=== PATIENT | male | born 1965 ===

== ENCOUNTER 2024-11-29 07:45 | Inpatient (IN) | payer OTHER ==
[~2024-11-29] VITALS: Ht 185.4 cm; Wt 114.8 kg
[2024-11-29] MEDS ORDERED: LANTUS SOL100 UNIT/1 (09:28)
[2024-11-29] MEDS ORDERED: OZEMPIC1 MG/0.71 SQ (09:28)
[2024-11-29] MEDS ORDERED: HUMALOG100 UNIT/2 (09:29)
[2024-11-29] MEDS ORDERED: TAMS0.4C PO (09:29)
[2024-11-29 09:32] VITALS: BP 112/73
[2024-11-29 09:49] LABS: URINE APPEARANCE Clear; URINE BILIRRUBIN Negative (NEGATIVE); URINE BLOOD Negative; URINE COLOR Yellow; URINE KETONE Negative (NEGATIVE); URINE LEUKOCYTE Negative; URINE NITRATE Negative; URINE PROTEIN Negative (NEGATIVE); URINE UROBILINOGEN 0.2 E.U./dl
[2024-11-29 09:56] LABS: URINE BACTERIA 128.2 uL (0.0-1933); URINE EPITHELIAL CELLS 1.6 uL (0.0-38.8); URINE RBC 2.0 uL (0.0-20.8); URINE WBC 1.8 uL (0.0-23.2)
[2024-11-29 09:59] LABS: BASO % 0.5 % (0.1-1.2); EOS # 0.12 (0.04-0.54); EOS % 2.0 % (0.7-7.0); LYMPH # 1.62 (1.18-3.74); LYMPH % 26.6 % (19.3-53.1); MEAN PLATELET VOLUME 9.30 fl (9.4-12.4); MONO # 0.40 (0.24-0.82); MONO % 6.6 % (4.7-12.5); NEUT # 3.89 (1.56-6.13); NEUT % 64.0 % (34.0-71.1); RED CELL DISTRIBUTION WIDTH 14.5 % (11.6-14.4)
[2024-11-29 10:14] LABS: INR 1.04
[2024-11-29 10:29] LABS: URINE GLUCOSE >=1000 MG/DL (NEGATIVE)
[2024-11-29 10:30] LABS: URINE CAST 0.00 uL (0.0-1.40)
[2024-11-29 10:50] LABS: ALT/SGPT 23.0 U/L (12-78); AST/SGOT 13.0 U/L (15-37); BILIRUBIN TOTAL 0.67 mg/dL (0.3-1.2); BUN CREA RATIO 13.0 (7.0-25.0); CREATININE SERUM 1.67 mg/dL (0.70-1.30); GFR 42.32; GLOBULINA 3.6 G/DL (2.4-3.5); GLUCOSE FASTING 134.0 mg/dL (65-100); OSMOLALITY SERUM 287.0 MOSM/KG (275-295)
[2024-12-05] MEDS ORDERED: METRONIDAZOLE/SODIUM CHLORIDE 500 MG/100 ML PIGGYBACK IV ONE (08:45)
[2024-12-05] MEDS ORDERED: CIPROFLOXACIN IN 5 % DEXTROSE 400 MG/200 ML PIGGYBAG IV ONE (08:45)
[2024-12-05] MEDS ORDERED: BUPIVACAINE HCL 30 ML VIAL IJ ONE (08:45)
[2024-12-05] MEDS ORDERED: GABAPENTIN400 MG (10:01)
[2024-12-05] MEDS ORDERED: DULOXETINE HCL60 MG (10:01)
[2024-12-05] MEDS ORDERED: LAMICTAL200 MG (10:01)
[2024-12-05] MEDS ORDERED: ESCITALOPRAM OX20 MG (10:01)
[2024-12-05] MEDS ORDERED: CLONAZEPAM0.5 MG (10:01)
[2024-12-05] MEDS ORDERED: TRAZODONE HCL100 MG (10:01)
[2024-12-05] MEDS ORDERED: VITAMIN D3125 MC1 (10:01)
[2024-12-05] MEDS ORDERED: RESTORIL30 MG (10:01)
[2024-12-05] MEDS ORDERED: METFORMIN HCL500 M4 (10:02)
[2024-12-05] MEDS ORDERED: TOPIRAMATE25 MG (10:02)
[2024-12-05] MEDS ORDERED: IRBESARTAN-HCT1 EACH (10:02)
[2024-12-05] MEDS ORDERED: SUCRALFATE1 GM (10:02)
[2024-12-05] MEDS ORDERED: FARXIGA10 MG (10:02)
[2024-12-05] MEDS ORDERED: OMEPRAZOLE20 MG (10:02)
[2024-12-05] MEDS ORDERED: SIMVASTATIN40 MG (10:02)
[2024-12-05] MEDS ORDERED: MORPHINE SULFATE 4 MG/ML CARTRIDGE IV PRN (11:00)
[2024-12-05] MEDS ORDERED: ACETAMINOPHEN 500 MG GEL..CAP PO SCH (12:00)
[2024-12-05] MEDS ORDERED: ENOXAPARIN SODIUM 40 MG/0.4 ML SYRINGE SUBCUTANEO SCH (17:00)
[2024-12-06 00:27] VITALS: BP 142/67; O2SAT 95
[2024-12-06 08:44] VITALS: BP 130/68; O2SAT 94
[2024-12-06 16:02] VITALS: BP 130/72; O2SAT 96
[2024-12-06] MEDS ORDERED: RINGERS SOLUTION,LACTATED 1,000 ML IV SCH (17:45)
[2024-12-07 01:22] VITALS: BP 115/66; O2SAT 98
== END 2024-12-07 14:27 | disposition home or self-care (01) | DRG 331 ==
LOC: SURH 12-05 07:00 → O/R 12-05 07:38 → SURH 12-05 07:45 → O/R 12-05 09:15 → SURH 12-05 17:59
PROVIDERS: ADMIT Surgery; ATTEND Surgery
PROC: 0DBP4ZZ Excision of Rectum, Percutaneous Endoscopic Approach (ICD-10-PCS; 2024-12-05)
PROC: 0DJD8ZZ Inspection of Lower Intestinal Tract, Via Natural or Artificial Opening Endoscopic (ICD-10-PCS; 2024-12-05)
PROC: 0DTN4ZZ Resection of Sigmoid Colon, Percutaneous Endoscopic Approach (ICD-10-PCS; principal; 2024-12-05 07:00)
DX: C18.7 Malignant neoplasm of sigmoid colon (principal); R59.0 Localized enlarged lymph nodes